=== PATIENT | male | born 2000 | race Caucasian/White ===

== ENCOUNTER 2018-04-04 18:22 | Emergency (ER) | payer SELFPAY ==
[2018-04-04] MEDS ORDERED: Ketorolac 60 MG/2 ML SDV IM ONE (19:04)
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
== END 2018-04-04 19:26 | disposition home or self-care (01) ==
LOC: JP.ED 18:22
DX: S06.0X0A Concussion without loss of consciousness, initial encounter (principal); S30.810A Abrasion of lower back and pelvis, initial encounter; S40.812A Abrasion of left upper arm, initial encounter; F17.210 Nicotine dependence, cigarettes, uncomplicated; V29.9XXA Motorcycle rider (driver) (passenger) injured in unspecified traffic accident, initial encounter
CPT/HCPCS: 96372; 99283; J1885

== ENCOUNTER 2018-09-15 20:00 | Emergency (ER) | payer MEDICAID, OTHER ==
--- NOTE | 2018-09-15 21:22 | EDM.PDOC ---
<Ivy Hopkins - Last Filed: 09/15/18 22:32> ED HPI GENERAL MEDICAL PROBLEM - General Chief Complaint: General Stated Complaint: MIGRAINES BODY ACHES Time Seen by Provider: 09/15/18 20:45 - History of Present Illness INITIAL COMMENTS - FREE TEXT/NARRATIVE: Hector Garcia is a 18 year old male who presents to the E.D. with concerns of an ongoing headache for 4 years, abdominal pain for 4 months and body aches. He states that he experiences a headache all day and spends 90% of his time in a dark room. Pain is located frontal, bilateral sides and extenders to bilateral shoulders. He states he does experience blurry vision and an aura, daily. He denies having a primary care provider. He notes abdominal pain that has been waxing and waning for 4 months but it is particular worse today. Abdominal pain started 8 hours ago and has been constant. He indicates he did vomiti twice today. The pain feels like "someone is taking a knife and stabbing him in the stomach", pain is located vaguely over entire abdomen area, particularly in middle, lower abdomen and bilateral sides. Also he notes back pain as well as hip pain that has been a chronic issue. He denies fevers, nausea , diarrhea, change in bowel and change in bladder. He indicates stress in his life as he is living with his parents and they do not always see eye to eye. He states he does not always handle stress the best. Insomnia is a factor and he notes to struggle with sleeping on the nightly. body pain Pain Score (Numeric/FACES): 9 - Related Data Allergies Allergy/AdvReac Type Severity Reaction Status Date / Time adrenal cortex (porcine) Allergy Swelling Verified 09/15/18 20:45 [From Adrenal] animal organ concentrates Allergy Swelling Verified 09/15/18 20:45 [From Adrenal] Home Meds: Home Meds NK [No Known Home Meds] 05/23/18 [History] Past Medical History HEENT History: Reports: Impaired Vision Cardiovascular History: Reports: Other (See Below) Other Cardiovascular History: pt states when he was younger he had a problem with a "glogged artery and heart palpitations" Musculoskeletal History: Reports: Fracture Neurological History: Reports: Concussion, Headaches, Chronic Psychiatric History: Reports: ADHD, Bipolar, PTSD, Schizophrenia, Suicide Attempt - Infectious Disease History Infectious Disease History: Reports: Chicken Pox - Past Surgical History Male Surgical History: Reports: Other (See Below) 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 Denies: Fever, Chills, Decreased Appetite HEENT: Denies: Ear Pain, Eye Pain, Rhinitis, Sinus Problem, Throat Pain Respiratory: Reports: Shortness of Breath. Denies: Wheezing, Cough, Sputum Cardiovascular: Denies: Chest Pain Endocrine: Denies: Polyuria GI/Abdominal: Reports: Abdominal Pain. Denies: Bloody Stool, Constipation, Diarrhea, Nausea, Vomiting : Denies: Dysuria, Frequency, Urgency Musculoskeletal: Reports: Neck Pain, Shoulder Pain, Back Pain, Muscle Pain, Muscle Stiffness Neurological: Reports: Headache, Tingling, Other (Indicates tingling throughout lower extremities) ED EXAM, GENERAL - Physical Exam Free Text/Narrative:: MSK: Limited range of motion of cervical spine, palpation reveals tenderness. General Appearance: Alert, No Apparent Distress Ears: Hearing Grossly Normal, Other (Bilateral cerumen in external auditory ear canals) Nose: Normal Inspection Throat/Mouth: Normal Inspection, Normal Lips, No Airway Compromise Head: Atraumatic, Normocephalic Neck: Supple, Non-Tender, Full Range of Motion Respiratory/Chest: No Respiratory Distress, No Accessory Muscle Use, Other ( Diminished breath sounds throughout the right lung field, clear to ascultation bilaterally ) GI/Abdominal: Normal Bowel Sounds, Soft, Other (Tender throughout abdominal palpation ) Extremities: Non-Tender, No Pedal Edema Skin Exam: Warm, Normal Color Course - Vital Signs Last Recorded V/S: Last Vital Signs Temp 36.8 C 09/15/18 22:26 Pulse 106 H 09/15/18 22:26 Resp 14 09/15/18 22:26 BP 125/79 09/15/18 22:26 Pulse Ox 100 09/15/18 22:26 - Orders/Labs/Meds Labs: Laboratory Tests 09/15/18 09/15/18 09/15/18 Range/Units 21:00 21:00 21:40 WBC 11.1 H (4.5-11.0) K/uL RBC 5.19 (4.30-5.90) M/uL Hgb 15.4 H (12.0-15.0) g/dL Hct 46.5 (40.0-54.0) % MCV 90 (80-98) fL MCH 30 (27-31) pg MCHC 33 (32-36) % Plt Count 351 (150-400) K/uL Neut % (Auto) 72 H (36-66) % Lymph % (Auto) 15 L (24-44) % [place] % (Auto) 12 H (2-6) % Eos % (Auto) 1 L (2-4) % Baso % (Auto) 0 (0-1) % Sodium 137 L (140-148) mmol/L Potassium 3.9 (3.6-5.2) mmol/L Chloride 99 L (100-108) mmol/L Carbon Dioxide 30 (21-32) mmol/L Anion Gap 11.9 (5.0-14.0) mmol/L BUN 10 (7-18) mg/dL Creatinine 1.0 (0.8-1.3) mg/dL Est Cr Clr Drug Dosing 94.83 mL/min Estimated GFR (MDRD) > 60 (>60) Glucose 91 (74-106) mg/dL Calcium 9.8 (8.5-10.1) mg/dL Total Bilirubin 0.5 (0.2-1.0) mg/dL AST 25 (15-37) U/L ALT 51 (12-78) U/L Alkaline Phosphatase 111 (46-116) U/L C-Reactive Protein 1.30 H (0.0-0.3) mg/dL Total Protein 8.4 H (6.4-8.2) g/dL Albumin 4.0 (3.4-5.0) g/dL Globulin 4.4 H (2.3-3.5) g/dL Albumin/Globulin Ratio 0.9 L (1.2-2.2) Urine Color Urine Appearance Urine pH (4.5-8.0) Ur Specific [place] (1.008-1.030) Urine Protein (NEGATIVE) mg/dL Urine Glucose (UA) (NEGATIVE) mg/dL Urine Ketones (NEGATIVE) mg/dL Urine Occult Blood (NEGATIVE) Urine Nitrite (NEGAITVE) Urine Bilirubin (NEGATIVE) Urine Urobilinogen (NORMAL) mg/dL Ur Leukocyte Esterase (NEGATIVE) Urine RBC (0-5) Urine WBC (0-5) Ur Epithelial Cells Amorphous Sediment Urine Bacteria Urine Mucus Urine Opiates Screen (NEGATIVE) Ur Oxycodone Screen (NEGATIVE) Urine Methadone Screen (NEGATIVE) Ur Propoxyphene Screen (NEGATIVE) Ur Barbiturates Screen (NEGATIVE) Ur Tricyclics Screen (NEGATIVE) Ur Phencyclidine Scrn (NEGATIVE) Ur Amphetamine Screen (NEGATIVE) U Methamphetamines Scrn (NEGATIVE) Urine MDMA Screen (NEGATIVE) U Benzodiazepines Scrn (NEGATIVE) U Cocaine Metab Screen (NEGATIVE) U Marijuana (THC) Screen (NEGATIVE) 09/15/18 09/15/18 Range/Units 22:01 22:01 WBC (4.5-11.0) K/uL RBC (4.30-5.90) M/uL Hgb (12.0-15.0) g/dL Hct (40.0-54.0) % MCV (80-98) fL MCH (27-31) pg MCHC (32-36) % Plt Count (150-400) K/uL Neut % (Auto) (36-66) % Lymph % (Auto) (24-44) % [place] % (Auto) (2-6) % Eos % (Auto) (2-4) % Baso % (Auto) (0-1) % Sodium (140-148) mmol/L Potassium (3.6-5.2) mmol/L Chloride (100-108) mmol/L Carbon Dioxide (21-32) mmol/L Anion Gap (5.0-14.0) mmol/L BUN (7-18) mg/dL Creatinine (0.8-1.3) mg/dL Est Cr Clr Drug Dosing mL/min Estimated GFR (MDRD) (>60) Glucose (74-106) mg/dL Calcium (8.5-10.1) mg/dL Total Bilirubin (0.2-1.0) mg/dL AST (15-37) U/L ALT (12-78) U/L Alkaline Phosphatase (46-116) U/L C-Reactive Protein (0.0-0.3) mg/dL Total Protein (6.4-8.2) g/dL Albumin (3.4-5.0) g/dL Globulin (2.3-3.5) g/dL Albumin/Globulin Ratio (1.2-2.2) Urine Color Yellow Urine Appearance Clear Urine pH 7.0 (4.5-8.0) Ur Specific [place] 1.005 L (1.008-1.030) Urine Protein Negative (NEGATIVE) mg/dL Urine Glucose (UA) Normal (NEGATIVE) mg/dL Urine Ketones Negative (NEGATIVE) mg/dL Urine Occult Blood Negative (NEGATIVE) Urine Nitrite Negative (NEGAITVE) Urine Bilirubin Negative (NEGATIVE) Urine Urobilinogen Normal (NORMAL) mg/dL Ur Leukocyte Esterase Negative (NEGATIVE) Urine RBC Not seen (0-5) Urine WBC Not seen (0-5) Ur Epithelial Cells Not seen Amorphous Sediment Not seen Urine Bacteria Not seen Urine Mucus Not seen Urine Opiates Screen Negative (NEGATIVE) Ur Oxycodone Screen Negative (NEGATIVE) Urine Methadone Screen Negative (NEGATIVE) Ur Propoxyphene Screen Negative (NEGATIVE) Ur Barbiturates Screen Negative (NEGATIVE) Ur Tricyclics Screen Negative (NEGATIVE) Ur Phencyclidine Scrn Negative (NEGATIVE) Ur Amphetamine Screen Negative (NEGATIVE) U Methamphetamines Scrn Negative (NEGATIVE) Urine MDMA Screen Negative (NEGATIVE) U Benzodiazepines Scrn Negative (NEGATIVE) U Cocaine Metab Screen Negative (NEGATIVE) U Marijuana (THC) Screen Negative (NEGATIVE) Meds: Medications Discontinued Medications Generic Name Dose Route Start Last Admin Trade Name Freq PRN Reason Stop Dose Admin Ketorolac Tromethamine 60 mg 09/15/18 22:37 09/15/18 22:45 Toradol IM 09/15/18 22:38 60 mg ONETIME ONE Administration Departure - Departure Disposition: Home, Self-Care 01 Clinical Impression: Muscle contraction headache, Gastrointestinal irritation - Discharge Information Instructions: Tension Headache, Adult, [id number] Referrals: PCP,None [Primary Care Provider] - Forms: ED Department Discharge Care Plan Goals: prilosec 20mg daily flexeril 10mg tabs--1.5 tabs at bedtime. <Nan Powers - Last Filed: 09/17/18 07:26> ED ROS GENERAL - Review of Systems Review Of Systems: See Below ED EXAM, GENERAL - Physical Exam Exam: See Below Course - Orders/Labs/Meds Meds: Medications Discontinued Medications Generic Name Dose Route Start Last Admin Trade Name Freq PRN Reason Stop Dose Admin Ketorolac Tromethamine 60 mg 09/15/18 22:37 09/15/18 22:45 Toradol IM 09/15/18 22:38 60 mg ONETIME ONE Administration - Re-Assessments/Exams Free Text/Narrative Re-Assessment/Exam: 09/15/18 22:35 cat scan of neck neg, lab work is normal, flat abdoman, chest clear. Departure - Departure Time of Disposition: 22:36 Condition: Fair
--- NOTE | 2018-09-15 21:23 | EDM.PDOC ---
ED HPI GENERAL MEDICAL PROBLEM - General Chief Complaint: General Stated Complaint: MIGRAINES BODY ACHES Time Seen by Provider: 09/15/18 20:40 body pain Pain Score (Numeric/FACES): 9 - Related Data Allergies Allergy/AdvReac Type Severity Reaction Status Date / Time adrenal cortex (porcine) Allergy Swelling Verified 09/15/18 20:45 [From Adrenal] animal organ concentrates Allergy Swelling Verified 09/15/18 20:45 [From Adrenal] Home Meds: Home Meds NK [No Known Home Meds] 05/23/18 [History] Past Medical History HEENT History: Reports: Impaired Vision Cardiovascular History: Reports: Other (See Below) Other Cardiovascular History: pt states when he was younger he had a problem with a "glogged artery and heart palpitations" Gastrointestinal History: Reports: Other (See Below) Other Gastrointestinal History: chronic abdominal pain for months Musculoskeletal History: Reports: Fracture Neurological History: Reports: Concussion, Headaches, Chronic Psychiatric History: Reports: ADHD, Bipolar, PTSD, Schizophrenia, Suicide Attempt - Infectious Disease History Infectious Disease History: Reports: Chicken Pox - Past Surgical History GI Surgical History: Reports: None Male Surgical History: Reports: Other (See Below) 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 Social & Family History - Tobacco Use Smoking Status *Q: Never Smoker Second Hand Smoke Exposure: No - Caffeine Use Caffeine Use: Reports: Energy Drinks, Soda - Recreational Drug Use Recreational Drug Use: No ED ROS GENERAL - Review of Systems Review Of Systems: See Below ED EXAM, GENERAL - Physical Exam Exam: See Below Course - Vital Signs Last Recorded V/S: Last Vital Signs Temp 36.8 C 09/15/18 22:26 Pulse 106 H 09/15/18 22:26 Resp 14 09/15/18 22:26 BP 125/79 09/15/18 22:26 Pulse Ox 100 09/15/18 22:26 - Orders/Labs/Meds Labs: Laboratory Tests 09/15/18 09/15/18 09/15/18 Range/Units 21:00 21:00 21:40 WBC 11.1 H (4.5-11.0) K/uL RBC 5.19 (4.30-5.90) M/uL Hgb 15.4 H (12.0-15.0) g/dL Hct 46.5 (40.0-54.0) % MCV 90 (80-98) fL MCH 30 (27-31) pg MCHC 33 (32-36) % Plt Count 351 (150-400) K/uL Neut % (Auto) 72 H (36-66) % Lymph % (Auto) 15 L (24-44) % [place] % (Auto) 12 H (2-6) % Eos % (Auto) 1 L (2-4) % Baso % (Auto) 0 (0-1) % Sodium 137 L (140-148) mmol/L Potassium 3.9 (3.6-5.2) mmol/L Chloride 99 L (100-108) mmol/L Carbon Dioxide 30 (21-32) mmol/L Anion Gap 11.9 (5.0-14.0) mmol/L BUN 10 (7-18) mg/dL Creatinine 1.0 (0.8-1.3) mg/dL Est Cr Clr Drug Dosing 94.83 mL/min Estimated GFR (MDRD) > 60 (>60) Glucose 91 (74-106) mg/dL Calcium 9.8 (8.5-10.1) mg/dL Total Bilirubin 0.5 (0.2-1.0) mg/dL AST 25 (15-37) U/L ALT 51 (12-78) U/L Alkaline Phosphatase 111 (46-116) U/L C-Reactive Protein 1.30 H (0.0-0.3) mg/dL Total Protein 8.4 H (6.4-8.2) g/dL Albumin 4.0 (3.4-5.0) g/dL Globulin 4.4 H (2.3-3.5) g/dL Albumin/Globulin Ratio 0.9 L (1.2-2.2) Urine Color Urine Appearance Urine pH (4.5-8.0) Ur Specific [place] (1.008-1.030) Urine Protein (NEGATIVE) mg/dL Urine Glucose (UA) (NEGATIVE) mg/dL Urine Ketones (NEGATIVE) mg/dL Urine Occult Blood (NEGATIVE) Urine Nitrite (NEGAITVE) Urine Bilirubin (NEGATIVE) Urine Urobilinogen (NORMAL) mg/dL Ur Leukocyte Esterase (NEGATIVE) Urine RBC (0-5) Urine WBC (0-5) Ur Epithelial Cells Amorphous Sediment Urine Bacteria Urine Mucus Urine Opiates Screen (NEGATIVE) Ur Oxycodone Screen (NEGATIVE) Urine Methadone Screen (NEGATIVE) Ur Propoxyphene Screen (NEGATIVE) Ur Barbiturates Screen (NEGATIVE) Ur Tricyclics Screen (NEGATIVE) Ur Phencyclidine Scrn (NEGATIVE) Ur Amphetamine Screen (NEGATIVE) U Methamphetamines Scrn (NEGATIVE) Urine MDMA Screen (NEGATIVE) U Benzodiazepines Scrn (NEGATIVE) U Cocaine Metab Screen (NEGATIVE) U Marijuana (THC) Screen (NEGATIVE) 09/15/18 09/15/18 Range/Units 22:01 22:01 WBC (4.5-11.0) K/uL RBC (4.30-5.90) M/uL Hgb (12.0-15.0) g/dL Hct (40.0-54.0) % MCV (80-98) fL MCH (27-31) pg MCHC (32-36) % Plt Count (150-400) K/uL Neut % (Auto) (36-66) % Lymph % (Auto) (24-44) % [place] % (Auto) (2-6) % Eos % (Auto) (2-4) % Baso % (Auto) (0-1) % Sodium (140-148) mmol/L Potassium (3.6-5.2) mmol/L Chloride (100-108) mmol/L Carbon Dioxide (21-32) mmol/L Anion Gap (5.0-14.0) mmol/L BUN (7-18) mg/dL Creatinine (0.8-1.3) mg/dL Est Cr Clr Drug Dosing mL/min Estimated GFR (MDRD) (>60) Glucose (74-106) mg/dL Calcium (8.5-10.1) mg/dL Total Bilirubin (0.2-1.0) mg/dL AST (15-37) U/L ALT (12-78) U/L Alkaline Phosphatase (46-116) U/L C-Reactive Protein (0.0-0.3) mg/dL Total Protein (6.4-8.2) g/dL Albumin (3.4-5.0) g/dL Globulin (2.3-3.5) g/dL Albumin/Globulin Ratio (1.2-2.2) Urine Color Yellow Urine Appearance Clear Urine pH 7.0 (4.5-8.0) Ur Specific [place] 1.005 L (1.008-1.030) Urine Protein Negative (NEGATIVE) mg/dL Urine Glucose (UA) Normal (NEGATIVE) mg/dL Urine Ketones Negative (NEGATIVE) mg/dL Urine Occult Blood Negative (NEGATIVE) Urine Nitrite Negative (NEGAITVE) Urine Bilirubin Negative (NEGATIVE) Urine Urobilinogen Normal (NORMAL) mg/dL Ur Leukocyte Esterase Negative (NEGATIVE) Urine RBC Not seen (0-5) Urine WBC Not seen (0-5) Ur Epithelial Cells Not seen Amorphous Sediment Not seen Urine Bacteria Not seen Urine Mucus Not seen Urine Opiates Screen Negative (NEGATIVE) Ur Oxycodone Screen Negative (NEGATIVE) Urine Methadone Screen Negative (NEGATIVE) Ur Propoxyphene Screen Negative (NEGATIVE) Ur Barbiturates Screen Negative (NEGATIVE) Ur Tricyclics Screen Negative (NEGATIVE) Ur Phencyclidine Scrn Negative (NEGATIVE) Ur Amphetamine Screen Negative (NEGATIVE) U Methamphetamines Scrn Negative (NEGATIVE) Urine MDMA Screen Negative (NEGATIVE) U Benzodiazepines Scrn Negative (NEGATIVE) U Cocaine Metab Screen Negative (NEGATIVE) U Marijuana (THC) Screen Negative (NEGATIVE) Meds: Medications Discontinued Medications Generic Name Dose Route Start Last Admin Trade Name Freq PRN Reason Stop Dose Admin Ketorolac Tromethamine 60 mg 09/15/18 22:37 09/15/18 22:45 Toradol IM 09/15/18 22:38 60 mg ONETIME ONE Administration Departure - Departure Time of Disposition: 23:05 Disposition: Home, Self-Care 01 Clinical Impression: Muscle contraction headache, Gastrointestinal irritation - Discharge Information Instructions: Tension Headache, Adult, [id number] Referrals: PCP,None [Primary Care Provider] - Forms: ED Department Discharge Care Plan Goals: prilosec 20mg daily flexeril 10mg tabs--1.5 tabs at bedtime.
--- NOTE | 2018-09-15 22:27 | CRLCT ---
INDICATION: DAILY HEADACHE CT HEAD WITHOUT CONTRAST TECHNIQUE: Multiple axial CT images were performed through the head without intravenous contrast administration. COMPARISON: No previous studies are currently available for comparison. FINDINGS: No acute intracranial hemorrhage is identified. No extra-axial collections are evident and there is no mass effect or midline shift. Ventricles are normal in size and configuration. Brain parenchyma appears normal with unremarkable de la rosa-white differentiation. Osseous structures are within normal limits and no fractures are seen. Included portions of the paranasal sinuses show mucosal thickening and/or fluid in the sphenoid sinus, suggesting sinusitis. The mastoid air cells are normally aerated. IMPRESSION: 1. No intracranial abnormality identified. 2. Sphenoid sinusitis. TONI ROSAS MD [facility] Dictated by Sunil Rosas MD @ 09/15/2018 10:25:21 PM Dictated by: Sunil Rosas MD @ 09/15/2018 22:25:36 (Electronically Signed)
--- NOTE | 2018-09-15 22:32 | CRLCR ---
INDICATION: Abdominal pain. COMPARISON: None. FINDINGS/IMPRESSION: Bowel gas pattern is within normal limits. No free air identified. Calcified phleboliths in the low pelvis. No suspicious calcifications. Unremarkable bony structures. Accompanying chest radiograph shows the lungs to be clear. Dictated by Sunil Khan MD @ 09/15/2018 10:29:36 PM Dictated by: Sunil Khan MD @ 09/15/2018 22:30:08 (Electronically Signed)
[2018-09-15] MEDS ORDERED: Ketorolac 60 MG/2 ML SDV IM ONE (22:37)
== END 2018-09-15 22:57 | disposition home or self-care (01) ==
LOC: JP.ED 20:00
DX: K31.89 Other diseases of stomach and duodenum (principal); R51 Headache; Z88.8 Allergy status to other drugs, medicaments and biological substances
CPT/HCPCS: 36415; 70450; 74022; 80053; 80305; 81001; 85025; 86140; 96372; 99284; J1885; 99283

== ENCOUNTER 2018-12-01 21:44 | Emergency (ER) | payer SELFPAY ==
--- NOTE | 2018-12-01 23:32 | EDM.PDOC ---
ED HPI GENERAL MEDICAL PROBLEM - General Chief Complaint: Behavioral/Psych Stated Complaint: EVAL Time Seen by Provider: 12/01/18 23:31 Source of Information: Reports: Patient History Limitations: Reports: No Limitations - History of Present Illness INITIAL COMMENTS - FREE TEXT/NARRATIVE: pt is having increased difficulty with anger controland is getting trouble at work because of this. He was very angry with his adopted father who drinks alot and was talking about harm to him. At this point this has passed and he does not feel that way. Onset: Gradual, Other (pt has been having a problem for awhile) Duration: Week(s): Location: Reports: Generalized, Other (Pt is having some major anger issues. ) Associated Symptoms: Reports: No Other Symptoms - Related Data Allergies Allergy/AdvReac Type Severity Reaction Status Date / Time adrenal cortex (porcine) Allergy Swelling Verified 12/01/18 22:09 [From Adrenal] animal organ concentrates Allergy Swelling Verified 12/01/18 22:09 [From Adrenal] Home Meds: Home Meds NK [No Known Home Meds] 05/23/18 [History] Past Medical History HEENT History: Reports: Impaired Vision Cardiovascular History: Reports: Other (See Below) Other Cardiovascular History: pt states when he was younger he had a problem with a "glogged artery and heart palpitations" Gastrointestinal History: Reports: Other (See Below) Other Gastrointestinal History: chronic abdominal pain for months Musculoskeletal History: Reports: Fracture Neurological History: Reports: Concussion, Headaches, Chronic Psychiatric History: Reports: ADHD, Bipolar, Psych Hospitalization(s), PTSD, Schizophrenia, Suicide Attempt - Infectious Disease History Infectious Disease History: Reports: Chicken Pox - Past Surgical History GI Surgical History: Reports: None Male Surgical History: Reports: Other (See Below) 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 Social & Family History - Tobacco Use Smoking Status *Q: Current Some Day Smoker Years of Tobacco use: 5 Packs/Tins Daily: 0.1 - Caffeine Use Caffeine Use: Reports: Coffee, Energy Drinks, Soda, Tea - Recreational Drug Use Recreational Drug Use: Yes Recreational Drug Type: Reports: Marijuana/Hashish Recreational Drug Use Frequency: Daily ED ROS GENERAL - Review of Systems Review Of Systems: See Below Constitutional: Reports: No Symptoms HEENT: Reports: No Symptoms Respiratory: Reports: No Symptoms Cardiovascular: Reports: No Symptoms Endocrine: Reports: No Symptoms GI/Abdominal: Reports: No Symptoms : Reports: No Symptoms Musculoskeletal: Reports: No Symptoms Skin: Reports: No Symptoms - Physical Exam Exam: See Below Text/Narrative:: pt arrived with increased anger issues and making some threats. Exam Limited By: No Limitations General Appearance: Alert, Other (pt is very cooperative, ) Ears: Normal TMs Nose: Normal Inspection Throat/Mouth: Normal Inspection Head Exam: Atraumatic Neck: Normal Inspection Respiratory/Chest: No Respiratory Distress Cardiovascular: Regular Rate, Rhythm GI/Abdominal: Soft, Non-Tender (Male) Exam: Deferred Rectal (Males) Exam: Deferred, Perirectal Abscess Neuro Exam (Abbreviated): Oriented, Normal Cognition Back Exam: Normal Inspection Extremities: Normal Inspection Psychiatric: Other (pt was feeling quitte angry on arrival. ) Course - Vital Signs Last Recorded V/S: Last Vital Signs Temp 37.2 C 12/01/18 22:20 Pulse 95 12/01/18 22:20 Resp 13 12/01/18 22:20 BP 148/107 H 12/01/18 22:20 Pulse Ox 99 12/01/18 22:20 - Orders/Labs/Meds Labs: Laboratory Tests 12/01/18 12/01/18 12/01/18 Range/Units 22:45 22:45 22:45 WBC 10.3 (4.5-11.0) K/uL RBC 4.94 (4.30-5.90) M/uL Hgb 15.0 (12.0-15.0) g/dL Hct 44.2 (40.0-54.0) % MCV 90 (80-98) fL MCH 30 (27-31) pg MCHC 34 (32-36) % Plt Count 353 (150-400) K/uL Neut % (Auto) 38 (36-66) % Lymph % (Auto) 45 H (24-44) % [place] % (Auto) 12 H (2-6) % Eos % (Auto) 4 (2-4) % Baso % (Auto) 2 H (0-1) % Sodium 138 L (140-148) mmol/L Potassium 3.8 (3.6-5.2) mmol/L Chloride 102 (100-108) mmol/L Carbon Dioxide 29 (21-32) mmol/L Anion Gap 10.8 (5.0-14.0) mmol/L BUN 8 (7-18) mg/dL Creatinine 1.0 (0.8-1.3) mg/dL Est Cr Clr Drug Dosing 102.50 mL/min Estimated GFR (MDRD) > 60 (>60) Glucose 102 (74-106) mg/dL Calcium 9.5 (8.5-10.1) mg/dL Total Bilirubin 0.2 D (0.2-1.0) mg/dL AST 30 (15-37) U/L ALT 47 (12-78) U/L Alkaline Phosphatase 116 (46-116) U/L Total Protein 8.1 (6.4-8.2) g/dL Albumin 4.1 (3.4-5.0) g/dL Globulin 4.0 H (2.3-3.5) g/dL Albumin/Globulin Ratio 1.0 L (1.2-2.2) Urine Color Urine Appearance Urine pH (4.5-8.0) Ur Specific [place] (1.008-1.030) Urine Protein (NEGATIVE) mg/dL Urine Glucose (UA) (NEGATIVE) mg/dL Urine Ketones (NEGATIVE) mg/dL Urine Occult Blood (NEGATIVE) Urine Nitrite (NEGAITVE) Urine Bilirubin (NEGATIVE) Urine Urobilinogen (NORMAL) mg/dL Ur Leukocyte Esterase (NEGATIVE) Urine RBC (0-5) Urine WBC (0-5) Ur Epithelial Cells Amorphous Sediment Urine Bacteria Urine Mucus Urine Opiates Screen (NEGATIVE) Ur Oxycodone Screen (NEGATIVE) Urine Methadone Screen (NEGATIVE) Ur Propoxyphene Screen (NEGATIVE) Ur Barbiturates Screen (NEGATIVE) Ur Tricyclics Screen (NEGATIVE) Ur Phencyclidine Scrn (NEGATIVE) Ur Amphetamine Screen (NEGATIVE) U Methamphetamines Scrn (NEGATIVE) Urine MDMA Screen (NEGATIVE) U Benzodiazepines Scrn (NEGATIVE) U Cocaine Metab Screen (NEGATIVE) U Marijuana (THC) Screen (NEGATIVE) Ethyl Alcohol < 3 mg/dL 12/01/18 12/01/18 Range/Units 23:00 23:00 WBC (4.5-11.0) K/uL RBC (4.30-5.90) M/uL Hgb (12.0-15.0) g/dL Hct (40.0-54.0) % MCV (80-98) fL MCH (27-31) pg MCHC (32-36) % Plt Count (150-400) K/uL Neut % (Auto) (36-66) % Lymph % (Auto) (24-44) % [place] % (Auto) (2-6) % Eos % (Auto) (2-4) % Baso % (Auto) (0-1) % Sodium (140-148) mmol/L Potassium (3.6-5.2) mmol/L Chloride (100-108) mmol/L Carbon Dioxide (21-32) mmol/L Anion Gap (5.0-14.0) mmol/L BUN (7-18) mg/dL Creatinine (0.8-1.3) mg/dL Est Cr Clr Drug Dosing mL/min Estimated GFR (MDRD) (>60) Glucose (74-106) mg/dL Calcium (8.5-10.1) mg/dL Total Bilirubin (0.2-1.0) mg/dL AST (15-37) U/L ALT (12-78) U/L Alkaline Phosphatase (46-116) U/L Total Protein (6.4-8.2) g/dL Albumin (3.4-5.0) g/dL Globulin (2.3-3.5) g/dL Albumin/Globulin Ratio (1.2-2.2) Urine Color Yellow Urine Appearance Clear Urine pH 6.0 (4.5-8.0) Ur Specific [place] 1.010 (1.008-1.030) Urine Protein Negative (NEGATIVE) mg/dL Urine Glucose (UA) Normal (NEGATIVE) mg/dL Urine Ketones Negative (NEGATIVE) mg/dL Urine Occult Blood Negative (NEGATIVE) Urine Nitrite Negative (NEGAITVE) Urine Bilirubin Negative (NEGATIVE) Urine Urobilinogen Normal (NORMAL) mg/dL Ur Leukocyte Esterase Negative (NEGATIVE) Urine RBC 0-5 (0-5) Urine WBC Not seen (0-5) Ur Epithelial Cells Rare Amorphous Sediment Not seen Urine Bacteria Not seen Urine Mucus Not seen Urine Opiates Screen Negative (NEGATIVE) Ur Oxycodone Screen Negative (NEGATIVE) Urine Methadone Screen Negative (NEGATIVE) Ur Propoxyphene Screen Negative (NEGATIVE) Ur Barbiturates Screen Negative (NEGATIVE) Ur Tricyclics Screen Negative (NEGATIVE) Ur Phencyclidine Scrn Negative (NEGATIVE) Ur Amphetamine Screen Negative (NEGATIVE) U Methamphetamines Scrn Negative (NEGATIVE) Urine MDMA Screen Negative (NEGATIVE) U Benzodiazepines Scrn Negative (NEGATIVE) U Cocaine Metab Screen Negative (NEGATIVE) U Marijuana (THC) Screen Negative (NEGATIVE) Ethyl Alcohol mg/dL - Re-Assessments/Exams Free Text/Narrative Re-Assessment/Exam: 12/02/18 01:08 pt was seen by the crisis team who felt he should get back on meds. Departure - Departure Time of Disposition: 00:59 Disposition: Home, Self-Care 01 Condition: Fair Clinical Impression: Difficulty controlling anger, ADHD - Discharge Information Instructions: Tips for Managing Your Anger Referrals: PCP,None [Primary Care Provider] - Forms: ED Department Discharge Care Plan Goals: pt is willing to see Dr Cleveland who comes to the [facility]. He is going to stop in there in the next few days and he is willing to be reevaluated and restart medication. I did offer to try to set up a appt but he wants to set his own up.
== END 2018-12-02 01:12 | disposition home or self-care (01) ==
LOC: JP.ED 21:44
DX: R45.4 Irritability and anger (principal); F90.9 Attention-deficit hyperactivity disorder, unspecified type; F17.210 Nicotine dependence, cigarettes, uncomplicated; F31.9 Bipolar disorder, unspecified; Z88.8 Allergy status to other drugs, medicaments and biological substances
CPT/HCPCS: 36415; 80053; 80305; 81001; 85025; 99284; G0480

== ENCOUNTER 2019-02-20 01:57 | Emergency (ER) | payer MEDICAID, OTHER ==
--- NOTE | 2019-02-20 03:25 | EDM.PDOC ---
ED HPI GENERAL MEDICAL PROBLEM - General Chief Complaint: Lower Extremity Injury/Pain Stated Complaint: MEDICAL VIA NORTH Time Seen by Provider: 02/20/19 02:31 Source of Information: Reports: Patient History Limitations: Reports: No Limitations - History of Present Illness INITIAL COMMENTS - FREE TEXT/NARRATIVE: This man came in complaining of pain in his left foot it's been going on for several days. He is wondering if maybe he might of broken his foot again. He broke it when he was a in [employer]. Left Foot Pain Score (Numeric/FACES): 4 - Related Data Allergies Allergy/AdvReac Type Severity Reaction Status Date / Time adrenal cortex (porcine) Allergy Swelling Verified 12/01/18 22:09 [From Adrenal] animal organ concentrates Allergy Swelling Verified 12/01/18 22:09 [From Adrenal] Home Meds: Home Meds NK [No Known Home Meds] 05/23/18 [History] Past Medical History HEENT History: Reports: Impaired Vision Cardiovascular History: Reports: Other (See Below) Other Cardiovascular History: pt states when he was younger he had a problem with a "glogged artery and heart palpitations" Gastrointestinal History: Reports: Other (See Below) Other Gastrointestinal History: chronic abdominal pain for months Musculoskeletal History: Reports: Fracture Neurological History: Reports: Concussion, Headaches, Chronic Psychiatric History: Reports: ADHD, Anxiety, Bipolar, Depression, Psych Hospitalization(s), PTSD, Schizophrenia, Suicide Attempt - Infectious Disease History Infectious Disease History: Reports: Chicken Pox - Past Surgical History GI Surgical History: Reports: None Male Surgical History: Reports: Other (See Below) 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 Social & Family History - Family History Family Medical History: Noncontributory - Tobacco Use Smoking Status *Q: Current Every Day Smoker Years of Tobacco use: 4 Packs/Tins Daily: 0 - Caffeine Use Caffeine Use: Reports: None - Alcohol Use Days Per Week of Alcohol Use: 1 Number of Drinks Per Day: 1 Total Drinks Per Week: 1 Date of Last Drink: 02/19/19 Time of Last Drink: 23:00 - Recreational Drug Use Recreational Drug Use: Yes Drug Use in Last 12 Months: Yes Recreational Drug Type: Reports: Marijuana/Hashish Recreational Drug Use Frequency: Daily Review of Systems - Review of Systems Review Of Systems: ROS reveals no pertinent complaints other than HPI. ED EXAM, GENERAL - Physical Exam Exam: See Below Exam Limited By: No Limitations General Appearance: Alert, WD/WN, No Apparent Distress Extremities: Other (Left foot appears to be grossly normal. There is a little bit of tenderness over the first metatarsal.) Course - Vital Signs Last Recorded V/S: Last Vital Signs Temp 36.1 C 02/20/19 02:02 Pulse 97 02/20/19 02:02 Resp 16 02/20/19 02:02 BP 140/98 H 02/20/19 02:02 Pulse Ox 98 02/20/19 02:02 - Orders/Labs/Meds Orders: Active Orders 24 hr Category Date Time Status Foot 2V Lt [CR] Stat Exams 02/20/19 02:35 Taken - Radiology Interpretation Free Text/Narrative:: X-ray shows normal foot Departure - Departure Time of Disposition: 03:25 Disposition: Home, Self-Care 01 Condition: Good Clinical Impression: Foot pain - Discharge Information Referrals: PCP,None [Primary Care Provider] - Additional Instructions: Resume normal activities. If your foot is still hurting on Friday then follow- up with your regular Dr. - My Orders Last 24 Hours: My Active Orders 02/20/19 02:35 Foot 2V Lt [CR] Stat - Assessment/Plan Last 24 Hours: My Active Orders 02/20/19 02:35 Foot 2V Lt [CR] Stat
--- NOTE | 2019-02-20 03:30 | CRLCR ---
Indication: Injury and pain Technique: Left foot 2 views. Comparison: None Findings: Bones: Alignment is normal. No fractures or bone lesions. Joint spaces: Unremarkable. Soft tissues: Unremarkable. Impression: Unremarkable left foot. Dictated by Param Keys MD @ Feb 20 2019 3:28AM Signed by Dr. Param Keys @ Feb 20 2019 3:29AM
== END 2019-02-20 03:39 | disposition home or self-care (01) ==
LOC: JP.ED 01:57
DX: M79.672 Pain in left foot (principal); F17.210 Nicotine dependence, cigarettes, uncomplicated; F31.9 Bipolar disorder, unspecified; F41.9 Anxiety disorder, unspecified; Z88.8 Allergy status to other drugs, medicaments and biological substances
CPT/HCPCS: 73620-LT; 99283; 99283-25

== ENCOUNTER 2021-03-09 15:27 | Emergency (ER) | payer MEDICAID | END 2021-03-09 16:30 | disposition left against medical advice (07) | LOC: JP.ED 15:27 | DX: Z53.21 Procedure and treatment not carried out due to patient leaving prior to being seen by health care provider (principal) ==

== ENCOUNTER 2021-03-27 12:00 | Emergency (ER) | payer MEDICAID ==
--- NOTE | 2021-03-27 14:00 | EDM.PDOC ---
ED HPI GENERAL MEDICAL PROBLEM - General Chief Complaint: Head Injury Stated Complaint: CONCUSSION ON FRIDAY Time Seen by Provider: 03/27/21 13:48 Source of Information: Reports: Patient, Family, RN Notes Reviewed History Limitations: Reports: No Limitations - History of Present Illness INITIAL COMMENTS - FREE TEXT/NARRATIVE: 20-year-old gentleman presents emergency department day complaint of dizziness, nausea difficulties with concentration. He did have a head injury 3 days prior would like to be evaluated for concussion Headache Pain Score (Numeric/FACES): 4 - Related Data Allergies Allergy/AdvReac Type Severity Reaction Status Date / Time adrenal cortex (porcine) Allergy Intermediate Swelling Verified 03/27/21 13:30 [From Adrenal] animal organ concentrates Allergy Intermediate Swelling Verified 03/27/21 13:30 [From Adrenal] amphetamine [From Adderall] Allergy Mild Blurred Verified 03/27/21 13:30 Vision dextroamphetamine Allergy Mild Blurred Verified 03/27/21 13:30 [From Adderall] Vision Home Meds: Home Meds ARIPiprazole [Abilify] 10 mg PO DAILY 03/27/21 [History] busPIRone [Buspar] 10 mg PO TID 03/27/21 [History] Past Medical History HEENT History: Reports: Impaired Vision Cardiovascular History: Reports: Heart Murmur, Other (See Below) Other Cardiovascular History: pt states when he was younger he had a problem with a "glogged artery and heart palpitations" Gastrointestinal History: Reports: Other (See Below) Other Gastrointestinal History: chronic abdominal pain for months Musculoskeletal History: Reports: Fracture Neurological History: Reports: Concussion, Headaches, Chronic Psychiatric History: Reports: ADHD, Anxiety, Bipolar, Depression, Psych Hospitalization(s), PTSD, Schizophrenia, Suicide Attempt - Infectious Disease History Infectious Disease History: Reports: Chicken Pox - Past Surgical History GI Surgical History: Reports: None Male Surgical History: Reports: Other (See Below) 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 Other Musculoskeletal Surgeries/Procedures:: SCOLIOSIS Social & Family History - Family History Family Medical History: No Pertinent Family History - Tobacco Use Tobacco Use Status *Q: Current Some Day Tobacco User Years of Tobacco use: 5 Packs/Tins Daily: 0.2 - Caffeine Use Caffeine Use: Reports: Coffee, Energy Drinks, Soda, Tea - Recreational Drug Use Recreational Drug Use: Yes Drug Use in Last 12 Months: Yes Recreational Drug Type: Reports: Marijuana/Hashish Recreational Drug Use Frequency: Daily ED ROS GENERAL - Review of Systems Review Of Systems: See Below Constitutional: Reports: No Symptoms HEENT: Reports: No Symptoms Respiratory: Reports: No Symptoms Cardiovascular: Reports: No Symptoms GI/Abdominal: Reports: Nausea : Reports: No Symptoms Neurological: Reports: Dizziness, Headache ED EXAM, HEAD INJURY - Physical Exam Exam: See Below Text/Narrative:: Cranial nerves II test with pupillary light reflex 5 mm to 3 mm bilaterally, CN III test pupillary constriction, lid elevation and eye abduction bilaterally, CN IV downward movement of eyes bilaterally, CN V good jaw movement, CN lateral deviation of the eyes bilaterally to finger movement, CN VII symmetrical smile shows teeth without difficulty, CN VIII pass finger rub to ears bilaterally, CN IX adequate voice and tone, CN X adequate voice and tone no difficulty swallowing, CN XI can shrug shoulders without difficulty, CN XII can stick tongue out without difficulty, cranial nerves II to XII intact as tested, power is 5 out 5 in upper and lower extremities, patellar reflex, biceps reflex +2 can do finger to nose without difficulty, no dysdiadochokinesis, no di fficulty with rapid alternating movements can do [id number] without difficulty, Romberg is negative, has adequate gait can do heel to toe, can toe walk and heel walk no cerebellar dysfunction can do duck walk without difficulty, no focal neurologic deficit Exam Limited By: No Limitations General Appearance: Alert, WD/WN, No Apparent Distress Head: Atraumatic, Normocephalic Respiratory: No Respiratory Distress Course - Vital Signs Last Recorded V/S: Last Vital Signs Temp 97.5 F 03/27/21 13:27 Pulse 64 03/27/21 13:27 Resp 16 03/27/21 13:27 BP 144/95 H 03/27/21 13:27 Pulse Ox 98 03/27/21 13:27 Departure - Departure Time of Disposition: 13:59 Disposition: Home, Self-Care 01 Condition: Fair Clinical Impression: Concussion injury of brain - Discharge Information Instructions: Concussion, Adult, [id number], Head Injury, Adult, [id number] Referrals: PCP,None [Primary Care Provider] - Forms: ED Department Discharge, ED Return to Work/School Form Additional Instructions: Continue with symptomatic care please followup with your primary care provider in 3-5 days if not better, please call return to the emergency department with worsening of symptoms., Sepsis Event Note (ED) - Evaluation Sepsis Screening Result: No Definite Risk - Focused Exam Vital Signs: Vital Signs Temp Pulse Resp BP Pulse Ox 03/27/21 13:27 97.5 F 64 16 144/95 H 98 - Assessment/Plan Plan: Assessment Acuity = acute Site and laterality = concussion Etiology = head injury Manifestations = none Location of injury = Home Lab values = none Plan Recommend concussion clinic and symptomatic care, he is can continue with Tylenol Motrin as needed, follow-up with his primary care as needed This note was dictated using [employer] voice recognition software please call with any questions on syntax or grammar.
== END 2021-03-27 14:11 | disposition home or self-care (01) ==
LOC: JP.ED 12:00
DX: S06.0X9A Concussion with loss of consciousness of unspecified duration, initial encounter (principal); Z72.0 Tobacco use; Z88.8 Allergy status to other drugs, medicaments and biological substances; Z79.899 Other long term (current) drug therapy; W22.8XXA Striking against or struck by other objects, initial encounter
CPT/HCPCS: 99283

== ENCOUNTER 2021-11-04 21:07 | Emergency (ER) | payer SELFPAY ==
[2021-11-04] MEDS ORDERED: Metoprolol Succinate 25 MG Tab.ER PO ONE (21:12)
== END 2021-11-04 23:49 | disposition home or self-care (01) ==
LOC: JP.ED 21:07
DX: R51.9 Headache, unspecified (principal); K04.7 Periapical abscess without sinus; F20.9 Schizophrenia, unspecified; R03.0 Elevated blood-pressure reading, without diagnosis of hypertension; Z91.09 Other allergy status, other than to drugs and biological substances; Z88.8 Allergy status to other drugs, medicaments and biological substances; Z87.891 Personal history of nicotine dependence
CPT/HCPCS: 36415; 70450; 80053; 80305-QW; 81001; 85025; 86140; 99283; 99284-25; A9270-GY

== ENCOUNTER 2021-12-03 12:57 | Emergency (ER) | payer MEDICAID ==
[2021-12-03] MEDS ORDERED: ARIPiprazole 10 MG Tab PO ONE (18:19)
[2021-12-03] MEDS ORDERED: busPIRone 10 MG Tab PO ONE (18:19)
== END 2021-12-03 18:55 | disposition home or self-care (01) ==
LOC: JP.ED 12:57
DX: F31.9 Bipolar disorder, unspecified (principal); F41.9 Anxiety disorder, unspecified; Z88.8 Allergy status to other drugs, medicaments and biological substances; Z91.040 Latex allergy status; Z91.018 Allergy to other foods; Z72.0 Tobacco use; Z20.822 Contact with and (suspected) exposure to COVID-19
CPT/HCPCS: 36415; 80053; 80305-QW; 80307; 84443; 85025; 99283; 99285; A9270-GY; U0002

== ENCOUNTER 2022-03-16 14:30 | Emergency (ER) | payer MEDICAID | END 2022-03-16 15:55 | disposition left against medical advice (07) | LOC: JP.ED 14:30 | DX: Z53.21 Procedure and treatment not carried out due to patient leaving prior to being seen by health care provider (principal) ==

== ENCOUNTER 2023-12-07 22:37 | Emergency (ER) | payer MEDICAID ==
[2023-12-08 00:05] LABS: BASOPHILS ABSOLUTE AUTO 0.19 K/uL (0.00-0.10); BASOPHILS PERCENT AUTO 1.7 % (0.1-1.3); EOSINOPHILS ABSOLUTE AUTO 0.57 K/uL (0.00-0.40); EOSINOPHILS PERCENT AUTO 5.2 % (0.0-5.4); HEMATOCRIT 43.4 % (38.4-49.7); HEMOGLOBIN 15.7 g/dL (12.9-16.9); IMMATURE GRAN ABSOLUTE AUTO 0.03 K/uL (0.00-0.23); IMMATURE GRAN PERCENT AUTO 0.3 % (0.0-0.7); LYMPHOCYTES ABSOLUTE AUTO 3.54 K/uL (0.8-3.3); LYMPHOCYTES PERCENT AUTO 32.6 % (11.4-47.7); MEAN CORPUSCULAR HEMOGLOBIN 32.1 pg (31.6-35.5); MEAN CORPUSCULAR HGB CONC 36.2 g/dL (31.6-35.5); MEAN CORPUSCULAR VOLUME 88.8 fL (81.4-99.0); MONOCYTES ABSOLUTE AUTO 1.25 K/uL (0.20-0.90); MONOCYTES PERCENT AUTO 11.5 % (3.3-12.6); NEUTROPHILS ABSOLUTE AUTO 5.29 K/uL (1.0-7.6); NEUTROPHILS PERCENT AUTO 48.7 % (40.0-78.1); PLATELET COUNT,PLT 321 K/uL (130-375); RED BLOOD CELL COUNT 4.89 M/uL (4.14-5.76); WHITE BLOOD CELL COUNT,WBC 10.9 K/uL (3.2-11.0)
[2023-12-08 00:06] LABS: ALANINE AMINOTRANSFERASE,ALT 29 U/L (12-78); ALBUMIN 4.3 g/dL (3.4-5.0); ALKALINE PHOSPHATASE 92 U/L (46-116); ASPARTATE AMNIOTRANSFERASE,AST 19 U/L (15-37); BILIRUBIN TOTAL 0.6 mg/dL (0.2-1.0); BLOOD UREA NITROGEN,BUN 11 mg/dL (7-18); CALCIUM 9.9 mg/dL (8.5-10.1); CARBON DIOXIDE,CO2 28 mmol/L (21-32); CHLORIDE,CL 101 mmol/L (100-108); CREATININE 1.1 mg/dL (0.8-1.3); EST CRCL DRUG DOSING (CG) 85.96 mL/min; ESTIMATED GFR 96 mL/min (>60); GLUCOSE RANDOM 87 mg/dL (74-106); POTASSIUM,K 4.2 mmol/L (3.6-5.2); PROTEIN TOTAL,TP 8.8 g/dL (6.4-8.2); SODIUM,NA 139 mmol/L (140-148)
[2023-12-08 00:07] LABS: ANION GAP 14.2 mmol/L (5.0-14.0)
[2023-12-08] MEDS: Acetaminophen 500 MG Tab PO ONE (00:31)
[2023-12-08 00:49] LABS: AMPHETAMINES SCREEN, URINE NEGATIVE (NEGATIVE); BARBITURATE SCREEN,URINE NEGATIVE (NEGATIVE); BENZODIAZEPINES SCREEN,URINE NEGATIVE (NEGATIVE); METHADONE SCREEN, URINE NEGATIVE (NEGATIVE); METHAMPHETAMINES SCREEN, URINE NEGATIVE (NEGATIVE); OXYCODONE SCREEN,URINE NEGATIVE (NEGATIVE); PROPOXYPHENE SCREEN,URINE NEGATIVE (NEGATIVE); THC SCREEN,URINE 50 NG/ML PRESUMPTIVE POSITIVE (NEGATIVE)
== END 2023-12-08 01:33 | disposition home or self-care (01) ==
LOC: JP.ED 22:37
DX: B36.0 Pityriasis versicolor (principal); R11.2 Nausea with vomiting, unspecified; F17.210 Nicotine dependence, cigarettes, uncomplicated; Z88.8 Allergy status to other drugs, medicaments and biological substances; Z91.040 Latex allergy status; Z91.018 Allergy to other foods; Z88.1 Allergy status to other antibiotic agents
CPT/HCPCS: 36415; 80053; 80305-QW; 85025; 99284; A9270-GY

== ENCOUNTER 2023-12-08 23:24 | Emergency (ER) | payer MEDICAID | END 2023-12-09 08:15 | disposition home or self-care (01) | LOC: JP.ED 23:24 | DX: F20.9 Schizophrenia, unspecified (principal); Z79.899 Other long term (current) drug therapy; Z88.8 Allergy status to other drugs, medicaments and biological substances; Z91.048 Other nonmedicinal substance allergy status; Z91.040 Latex allergy status; Z91.018 Allergy to other foods | CPT/HCPCS: 99284; 99285 ==

== ENCOUNTER 2024-02-16 22:22 | Emergency (ER) | payer MEDICAID | END 2024-02-16 23:05 | disposition home or self-care (01) | LOC: JP.ED 22:22 | DX: S91.312A Laceration without foreign body, left foot, initial encounter (principal); F17.210 Nicotine dependence, cigarettes, uncomplicated; Z79.899 Other long term (current) drug therapy; Z88.8 Allergy status to other drugs, medicaments and biological substances; Z91.048 Other nonmedicinal substance allergy status; Z91.040 Latex allergy status; W25.XXXA Contact with sharp glass, initial encounter | CPT/HCPCS: 12001; 99282; 99283 ==

== ENCOUNTER 2024-03-06 22:17 | Emergency (ER) | payer MEDICAID ==
[2024-03-06 23:46] LABS: CORONAVIRUS COVID-19 NAA NEGATIVE (NEGATIVE); INFLUENZA A NAA NEGATIVE (NEGATIVE); INFLUENZA B NAA NEGATIVE (NEGATIVE); RESPIRATORY SYNCYTIAL VIR NAA NEGATIVE (NEGATIVE)
== END 2024-03-07 00:23 | disposition home or self-care (01) ==
LOC: JP.ED 22:17
DX: B34.9 Viral infection, unspecified (principal); Z91.040 Latex allergy status; Z91.018 Allergy to other foods; Z88.8 Allergy status to other drugs, medicaments and biological substances
CPT/HCPCS: 0241U; 99284